=== PATIENT | female | born 1985 | race Caucasian/White ===

== ENCOUNTER 2018-05-18 10:10 | Inpatient (IN) | payer OTHER ==
[2018-05-18 10:49] VITALS: BMI 41.3
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
[2018-05-18] MEDS ORDERED: MAGNESIUM CITRATE 300 ML BOTTLE PO PRN (12:01)
[2018-05-18] MEDS ORDERED: IBUPROFEN 400 MG TABLET (FP) PO PRN (12:01)
[2018-05-18] MEDS ORDERED: diazePAM 5 MG TABLET PO PRN (12:01)
[2018-05-18] MEDS ORDERED: ACETAMINOPHEN 325 MG TABLET (FP) PO PRN (12:01)
[2018-05-18] MEDS ORDERED: MAGNESIUM HYDROX 2400MG/30ML ORAL SUSPENSION 30 ML CUP PO PRN (12:01)
[2018-05-18] MEDS ORDERED: MAG HYDROX/AL HYDROX/SIMETH 30 ML UNIT-DOSE CUP PO PRN (12:01)
[2018-05-18] MEDS ORDERED: ALBUTEROL SO4 8 GM HFA INHALER IH PRN (12:07)
[2018-05-18] MEDS ORDERED: ALBUTEROL SO4 0.083% IH SOL 2.5 MG/3 ML VIAL.NEB. NEB PRN (12:11)
[2018-05-18] MEDS ORDERED: diazePAM 5 MG TABLET PO ONE (12:45)
[2018-05-18] MEDS: diazePAM 5 MG TABLET PO SCH ×2 (14:28→22:23)
--- NOTE | 2018-05-18 15:41 | EKG ---
Test Reason : Blood Pressure : / mmHG Vent. Rate : 097 BPM Atrial Rate : 097 BPM P-R Int : 118 ms QRS Dur : 094 ms QT Int : 370 ms P-R-T Axes : 064 058 022 degrees QTc Int : 469 ms NORMAL SINUS RHYTHM NORMAL ECG NO PREVIOUS ECGS AVAILABLE Confirmed by MILES MICHEL MD ([id number]) on 05/18/2018 3:40:56 PM Referred By: Confirmed By:MILES MICHEL MD
[2018-05-18] MEDS: INSULIN SLIDING SCALE (NOVOLOG) 1 VIAL SQ SCH ×2 (17:28→22:19)
[2018-05-18] MEDS ORDERED: INSULIN (NOVOLOG) ASPART 100 UNITS/ML 10ML VIAL ONE ×2 (17:30→22:21)
[2018-05-18 17:55] LABS: URINE APPEARANCE SLCLOUDY; URINE BILIRUBIN NEGATIVE (<2.0 mg/dL); URINE COLOR YELLOW; URINE GLUCOSE (UA) 1+ (NEGATIVE); URINE KETONE NEGATIVE (NEGATIVE); URINE LEUK ESTERASE NEGATIVE (NEGATIVE); URINE NITRITE NEGATIVE (NEGATIVE); URINE PROTEIN NEGATIVE (NEGATIVE); URINE UROBILINOGEN NEGATIVE mg/dL (0.2-1.0)
[2018-05-18] MEDS: NICOTINE POLACRILEX 2 MG GUM BUC PRN (20:23)
[2018-05-18] MEDS ORDERED: MELATONIN 5 MG TABLETS PO PRN (22:00)
[2018-05-18] MEDS: THIAMINE HCL 100 MG TABLET (FP) PO SCH (22:20)
[2018-05-19] MEDS: diazePAM 5 MG TABLET PO SCH ×3 (05:43→23:02)
[2018-05-19] MEDS: NICOTINE POLACRILEX 2 MG GUM BUC PRN ×3 (06:22→18:25)
[2018-05-19] MEDS: INSULIN SLIDING SCALE (NOVOLOG) 1 VIAL SQ SCH ×4 (06:38→23:09)
[2018-05-19] MEDS ORDERED: diazePAM 5 MG TABLET PO SCH (10:00)
[2018-05-19] MEDS: PRENATAL VITAMINS W/ FOLIC ACID TABLET (FP) PO SCH (10:13)
[2018-05-19 11:05] LABS: HEMATOCRIT 42.4 % (32.4-45.2); HEMOGLOBIN 13.9 GM/dL (10.7-15.3); MCH 27.8 pg (25.7-33.7); MCHC 32.8 g/dl (32.0-36.0); MEAN CELL VOLUME 84.9 fl (80-96); MEAN PLT VOLUME 10.8 fl (7.5-11.1); RDW 13.6 % (11.6-15.6); WHITE BLOOD COUNT 16.9 K/mm3 (4.0-10.0)
[2018-05-19 11:18] LABS: CHLORIDE 102 mmol/L (98-107); POTASSIUM 4.2 mmol/L (3.5-5.1); SODIUM 139 mmol/L (136-145)
[2018-05-19 11:27] LABS: ALBUMIN 3.1 g/dl (3.4-5.0); ALK PHOS 67 U/L (45-117); ANION GAP 11 MMOL/L (8-16); BILIRUBIN,TOTAL 0.2 mg/dL (0.2-1.0); BLOOD UREA NITROGEN 18 mg/dL (7-18); CALCIUM 8.8 mg/dL (8.5-10.1); CO2 26 mmol/L (21-32); CREATININE 0.6 mg/dL (0.55-1.3); GLUCOSE,RANDOM 224 mg/dL (74-106); SGOT/AST 7 U/L (15-37); SGPT/ALT 18 U/L (13-61); TOT PROT 6.8 g/dl (6.4-8.2)
[2018-05-19] MEDS ORDERED: INSULIN (NOVOLOG) ASPART 100 UNITS/ML 10ML VIAL ONE ×2 (11:31→17:50)
--- NOTE | 2018-05-19 11:36 | PN ---
S CIWA - CIWA Score Nausea/Vomitin Muscle Tremors: 2 Anxiety: 3 Agitation: 2 Paroxysmal Sweats: 3 Orientation: 0-Oriented Tacttile Disturbances: 2-Mild Itch/Numbness/Burn Auditory Disturbances: 0-None Visual Disturbances: 0-None Headache: 1-Very Mild CIWA-Ar Total Score: 15 S Progress Note (SOAP) Subjective: INTERRUPTED SLEEP, SWEATS , RT FOOT PAIN Objective: 05/19/18 11:33 Vital Signs Temperature 97.7 F 05/19/18 09:41 Pulse Rate 84 05/19/18 09:41 Respiratory Rate 20 05/19/18 09:41 Blood Pressure 132/71 05/19/18 09:41 O2 Sat by Pulse Oximetry (%) Laboratory Tests 05/18/18 05/18/18 05/18/18 11:21 15:00 16:29 WBC RBC Hgb Hct MCV MCH MCHC RDW MPV Sodium Potassium Chloride Carbon Dioxide Anion Gap BUN Creatinine Creat Clearance w eGFR POC Glucometer 262 231 Random Glucose Calcium Total Bilirubin AST ALT Alkaline Phosphatase Total Protein Albumin Urine Color Yellow Urine Appearance Slcloudy Urine pH 5.0 Ur Specific [place] 1.024 Urine Protein Negative Urine Glucose (UA) 1+ H Urine Ketones Negative Urine Blood Negative Urine Nitrite Negative Urine Bilirubin Negative Urine Urobilinogen Negative Ur Leukocyte Esterase Negative 05/18/18 05/19/18 05/19/18 22:17 05:41 06:00 WBC 16.9 H RBC 5.00 Hgb 13.9 Hct 42.4 MCV 84.9 MCH 27.8 MCHC 32.8 RDW 13.6 MPV 10.8 Sodium Potassium Chloride Carbon Dioxide Anion Gap BUN Creatinine Creat Clearance w eGFR POC Glucometer 331 177 Random Glucose Calcium Total Bilirubin AST ALT Alkaline Phosphatase Total Protein Albumin Urine Color Urine Appearance Urine pH Ur Specific [place] Urine Protein Urine Glucose (UA) Urine Ketones Urine Blood Urine Nitrite Urine Bilirubin Urine Urobilinogen Ur Leukocyte Esterase 05/19/18 05/19/18 06:00 11:11 WBC RBC Hgb Hct MCV MCH MCHC RDW MPV Sodium 139 Potassium 4.2 Chloride 102 Carbon Dioxide 26 Anion Gap 11 BUN 18 Creatinine 0.6 Creat Clearance w eGFR > 60 POC Glucometer 245 Random Glucose 224 H Calcium 8.8 Total Bilirubin 0.2 AST 7 L ALT 18 Alkaline Phosphatase 67 Total Protein 6.8 Albumin 3.1 L Urine Color Urine Appearance Urine pH Ur Specific [place] Urine Protein Urine Glucose (UA) Urine Ketones Urine Blood Urine Nitrite Urine Bilirubin Urine Urobilinogen Ur Leukocyte Esterase OBESE F PT AOX3 SITTING UP EATTING IN BED PT USING CANE FOR AMBULATION + HIRSUTISM 05/19/18 11:37 Assessment: 05/19/18 11:39 WITHDRAWAL SX'S MS DM HTN Plan: CONT DETOX INCREASE FLUIDS METFORMIN 1000MG BID LISINOPRIL 20MG DAILY PREDNISONE 40MG /D INSULIN COVERAGE INDICATED
[2018-05-19 14:09] LABS: RPR REACTIVE 1:8 (NONREACTIVE)
--- NOTE | 2018-05-19 15:05 | PN ---
[facility] Progress Note Note: 33 y/o f pt with h/o syphilis treated 1 month with doxycycline 500mg bid x 14 day( 2nd to pcn allergy) while she was at alf. Pt doesn't know what titer was at that time . Vital Signs Temperature 97.7 F 05/19/18 14:37 Pulse Rate 90 05/19/18 14:37 Respiratory Rate 16 05/19/18 14:37 Blood Pressure 134/77 05/19/18 14:37 O2 Sat by Pulse Oximetry (%) Abnormal Lab Results 05/18/18 05/19/18 05/19/18 15:00 06:00 06:00 WBC 16.9 H Random Glucose 224 H AST 7 L Albumin 3.1 L Urine Glucose (UA) 1+ H RPR Titer 05/19/18 06:00 WBC Random Glucose AST Albumin Urine Glucose (UA) RPR Titer Reactive 1:8 H IMP- syphilis titer reactive 1:8 PLAN - doxycycline 100mg bid x 14 days f/up at EPI / PMD
[2018-05-19 15:12] LABS: TREPONEMA ANTIBODY REACTIVE (NONREACTIVE)
[2018-05-19] MEDS: metFORMIN HCL 500 MG TABLET (FP) PO SCH (18:21)
[2018-05-19] MEDS: DOXYCYCLINE HYCLATE 100 MG TABLET PO SCH (18:21)
[2018-05-19] MEDS: THIAMINE HCL 100 MG TABLET (FP) PO SCH (23:01)
[2018-05-20] MEDS: metFORMIN HCL 500 MG TABLET (FP) PO SCH ×2 (06:25→17:30)
[2018-05-20] MEDS: INSULIN SLIDING SCALE (NOVOLOG) 1 VIAL SQ SCH ×4 (06:25→22:45)
[2018-05-20] MEDS: LISINOPRIL 20 MG TABLET (FP) PO SCH (10:28)
[2018-05-20] MEDS: diazePAM 5 MG TABLET PO SCH ×2 (10:28→22:37)
[2018-05-20] MEDS: PRENATAL VITAMINS W/ FOLIC ACID TABLET (FP) PO SCH (10:28)
[2018-05-20] MEDS: HYDROCHLOROTHIAZIDE 25 MG TABLET (FP) PO SCH (10:28)
[2018-05-20] MEDS: DOXYCYCLINE HYCLATE 100 MG TABLET PO SCH ×2 (10:28→17:51)
[2018-05-20] MEDS: predniSONE 20 MG TABLET (UD) PO SCH (10:29)
[2018-05-20] MEDS: hydrOXYzine PAMOATE 25 MG CAPSULE (FP) PO PRN ×2 (10:30→22:38)
[2018-05-20] MEDS: NICOTINE POLACRILEX 2 MG GUM BUC PRN ×2 (10:31→17:56)
[2018-05-20 11:19] LABS: BASO % 0.4 % (0-2.0); EOS % 1.3 % (0-4.5); HEMATOCRIT 46.4 % (32.4-45.2); HEMOGLOBIN 15.1 GM/dL (10.7-15.3); LYMPH % 35.5 % (8-40); MCH 27.6 pg (25.7-33.7); MCHC 32.5 g/dl (32.0-36.0); MEAN PLT VOLUME 10.8 fl (7.5-11.1); MONO % 6.3 % (3.8-10.2); NEUT % 56.5 % (42.8-82.8); RBC 5.47 M/mm3 (3.60-5.2); RDW 13.4 % (11.6-15.6); WHITE BLOOD COUNT 19.1 K/mm3 (4.0-10.0)
[2018-05-20] MEDS ORDERED: INSULIN (NOVOLOG) ASPART 100 UNITS/ML 10ML VIAL ONE ×3 (11:48→22:45)
--- NOTE | 2018-05-20 12:12 | PN ---
[facility] CIWA - CIWA Score Nausea/Vomitin-Mild Nausea/No Vomiting Muscle Tremors: 1-None Visible, but Temperance Anxiety: 1-Mildly Anxious Agitation: 1-Slight > Activity Paroxysmal Sweats: 1-Minimal Palms Moist Orientation: 0-Oriented Tacttile Disturbances: 0-None Auditory Disturbances: 0-None Visual Disturbances: 0-None Headache: 0-None Present CIWA-Ar Total Score: 5 BHS Progress Note (SOAP) Subjective: pt without complaints, says feeling OK, pt stubbed toe a couple of days back O: Vital Signs - 24 hr 05/19/18 05/19/18 05/19/18 14:37 18:04 22:09 Temperature 97.7 F 97.9 F 97.3 F L Pulse Rate 90 87 99 H Respiratory 16 18 20 Rate Blood Pressure 134/77 128/80 134/71 05/20/18 05/20/18 05/20/18 00:30 03:30 07:30 Temperature 97.5 F L Pulse Rate 83 Respiratory 18 18 18 Rate Blood Pressure 121/84 05/20/18 08:44 Temperature 97.5 F L Pulse Rate 93 H Respiratory 16 Rate Blood Pressure 152/83 SBP mildly high Laboratory Tests 05/18/18 05/18/18 05/18/18 11:21 15:00 16:29 WBC RBC Hgb Hct MCV MCH MCHC RDW Plt Count MPV Absolute Neuts (auto) Neutrophils % Lymphocytes % Monocytes % Eosinophils % Basophils % Nucleated RBC % Platelet Comment Sodium Potassium Chloride Carbon Dioxide Anion Gap BUN Creatinine Creat Clearance w eGFR POC Glucometer 262 231 Random Glucose Calcium Total Bilirubin AST ALT Alkaline Phosphatase Total Protein Albumin Urine Color Yellow Urine Appearance Slcloudy Urine pH 5.0 Ur Specific [place] 1.024 Urine Protein Negative Urine Glucose (UA) 1+ H Urine Ketones Negative Urine Blood Negative Urine Nitrite Negative Urine Bilirubin Negative Urine Urobilinogen Negative Ur Leukocyte Esterase Negative RPR Titer T.pallidum Ab ([facility]) 05/18/18 05/19/18 05/19/18 22:17 05:41 06:00 WBC 16.9 H RBC 5.00 Hgb 13.9 Hct 42.4 MCV 84.9 MCH 27.8 MCHC 32.8 RDW 13.6 Plt Count TNP MPV 10.8 Absolute Neuts (auto) Neutrophils % Lymphocytes % Monocytes % Eosinophils % Basophils % Nucleated RBC % Platelet Comment Sodium Potassium Chloride Carbon Dioxide Anion Gap BUN Creatinine Creat Clearance w eGFR POC Glucometer 331 177 Random Glucose Calcium Total Bilirubin AST ALT Alkaline Phosphatase Total Protein Albumin Urine Color Urine Appearance Urine pH Ur Specific [place] Urine Protein Urine Glucose (UA) Urine Ketones Urine Blood Urine Nitrite Urine Bilirubin Urine Urobilinogen Ur Leukocyte Esterase RPR Titer T.pallidum Ab (A) 05/19/18 05/19/18 05/19/18 06:00 06:00 11:11 WBC RBC Hgb Hct MCV MCH MCHC RDW Plt Count MPV Absolute Neuts (auto) Neutrophils % Lymphocytes % Monocytes % Eosinophils % Basophils % Nucleated RBC % Platelet Comment Sodium 139 Potassium 4.2 Chloride 102 Carbon Dioxide 26 Anion Gap 11 BUN 18 Creatinine 0.6 Creat Clearance w eGFR > 60 POC Glucometer 245 Random Glucose 224 H Calcium 8.8 Total Bilirubin 0.2 AST 7 L ALT 18 Alkaline Phosphatase 67 Total Protein 6.8 Albumin 3.1 L Urine Color Urine Appearance Urine pH Ur Specific [place] Urine Protein Urine Glucose (UA) Urine Ketones Urine Blood Urine Nitrite Urine Bilirubin Urine Urobilinogen Ur Leukocyte Esterase RPR Titer Reactive 1:8 H T.pallidum Ab ([facility]) Reactive 05/19/18 05/20/18 05/20/18 16:32 06:23 07:50 WBC 19.1 H RBC 5.47 H Hgb 15.1 Hct 46.4 H MCV 85.0 MCH 27.6 MCHC 32.5 RDW 13.4 Plt Count MPV 10.8 Absolute Neuts (auto) 10.8 H Neutrophils % 56.5 Lymphocytes % 35.5 Monocytes % 6.3 Eosinophils % 1.3 Basophils % 0.4 Nucleated RBC % 0 Platelet Comment Sodium Potassium Chloride Carbon Dioxide Anion Gap BUN Creatinine Creat Clearance w eGFR POC Glucometer 316 176 Random Glucose Calcium Total Bilirubin AST ALT Alkaline Phosphatase Total Protein Albumin Urine Color Urine Appearance Urine pH Ur Specific [place] Urine Protein Urine Glucose (UA) Urine Ketones Urine Blood Urine Nitrite Urine Bilirubin Urine Urobilinogen Ur Leukocyte Esterase RPR Titer T.pallidum Ab (A) 05/20/18 11:22 WBC RBC Hgb Hct MCV MCH MCHC RDW Plt Count MPV Absolute Neuts (auto) Neutrophils % Lymphocytes % Monocytes % Eosinophils % Basophils % Nucleated RBC % Platelet Comment Sodium Potassium Chloride Carbon Dioxide Anion Gap BUN Creatinine Creat Clearance w eGFR POC Glucometer 233 Random Glucose Calcium Total Bilirubin AST ALT Alkaline Phosphatase Total Protein Albumin Urine Color Urine Appearance Urine pH Ur Specific [place] Urine Protein Urine Glucose (UA) Urine Ketones Urine Blood Urine Nitrite Urine Bilirubin Urine Urobilinogen Ur Leukocyte Esterase RPR Titer T.pallidum Ab (A) PE: toe shows no evidence of infection, no redness, no pain, not fluctuant increased WBC and increased glucose a/p: on etoh detox protocol: doing well. increased WBC no evidence of infection at the present moment: d/w pt- to make us aware if toe gets worse or any other Sx elsewhere
[2018-05-20 13:30] LABS: PLATELET ESTIMATE ADEQUATE
[2018-05-20] MEDS: THIAMINE HCL 100 MG TABLET (FP) PO SCH (22:37)
[2018-05-21] MEDS ORDERED: INSULIN (NOVOLOG) ASPART 100 UNITS/ML 10ML VIAL ONE ×3 (06:58→16:41)
[2018-05-21] MEDS: metFORMIN HCL 500 MG TABLET (FP) PO SCH ×2 (06:59→16:45)
[2018-05-21] MEDS: INSULIN SLIDING SCALE (NOVOLOG) 1 VIAL SQ SCH ×4 (07:01→22:56)
[2018-05-21] MEDS: NICOTINE POLACRILEX 2 MG GUM BUC PRN ×3 (07:49→15:38)
[2018-05-21] MEDS: DOXYCYCLINE HYCLATE 100 MG TABLET PO SCH (09:52)
[2018-05-21] MEDS: LISINOPRIL 20 MG TABLET (FP) PO SCH (09:53)
[2018-05-21] MEDS: PRENATAL VITAMINS W/ FOLIC ACID TABLET (FP) PO SCH (09:53)
[2018-05-21] MEDS: HYDROCHLOROTHIAZIDE 25 MG TABLET (FP) PO SCH (09:53)
[2018-05-21] MEDS: predniSONE 20 MG TABLET (UD) PO SCH (09:53)
[2018-05-21] MEDS ORDERED: diazePAM 5 MG TABLET PO SCH (10:00)
--- NOTE | 2018-05-21 11:12 | PN ---
[facility] Progress Note (SOAP) Subjective: feeling better less sweat no tremor no gi distress reported positive sypnilis months ago treated with doxycycline 100 mg bid x 14 days no positive syphilis symptoms noted unknown original trust level current 1:8 wbc 19/1 begin doxyclline 100 mg po bid x 28 days Objective: 05/21/18 11:22 Vital Signs Temperature 97.7 F 05/21/18 09:20 Pulse Rate 108 H 05/21/18 09:20 Respiratory Rate 16 05/21/18 09:20 Blood Pressure 141/88 05/21/18 09:20 O2 Sat by Pulse Oximetry (%) Laboratory Last Values WBC 19.1 K/mm3 (4.0-10.0) H 05/20/18 07:50 RBC 5.47 M/mm3 (3.60-5.2) H 05/20/18 07:50 Hgb 15.1 GM/dL (10.7-15.3) 05/20/18 07:50 Hct 46.4 % (32.4-45.2) H 05/20/18 07:50 MCV 85.0 fl (80-96) 05/20/18 07:50 MCH 27.6 pg (25.7-33.7) 05/20/18 07:50 MCHC 32.5 g/dl (32.0-36.0) 05/20/18 07:50 RDW 13.4 % (11.6-15.6) 05/20/18 07:50 Plt Count No Result Required. 05/20/18 07:50 MPV 10.8 fl (7.5-11.1) 05/20/18 07:50 Absolute Neuts (auto) 10.8 K/mm3 (1.5-8.0) H 05/20/18 07:50 Neutrophils % 56.5 % (42.8-82.8) 05/20/18 07:50 Lymphocytes % 35.5 % (8-40) 05/20/18 07:50 Monocytes % 6.3 % (3.8-10.2) 05/20/18 07:50 Eosinophils % 1.3 % (0-4.5) 05/20/18 07:50 Basophils % 0.4 % (0-2.0) 05/20/18 07:50 Nucleated RBC % 0 % (0-0) 05/20/18 07:50 Platelet Estimate Adequate 05/20/18 07:50 Platelet Comment Mod plt clumping 05/20/18 07:50 Sodium 139 mmol/L (136-145) 05/19/18 06:00 Potassium 4.2 mmol/L (3.5-5.1) 05/19/18 06:00 Chloride 102 mmol/L (98-107) 05/19/18 06:00 Carbon Dioxide 26 mmol/L (21-32) 05/19/18 06:00 Anion Gap 11 MMOL/L (8-16) 05/19/18 06:00 BUN 18 mg/dL (7-18) 05/19/18 06:00 Creatinine 0.6 mg/dL (0.55-1.3) 05/19/18 06:00 Creat Clearance w eGFR > 60 (>60) 05/19/18 06:00 POC Glucometer 207 UNITS (80-120) 05/21/18 06:44 Random Glucose 224 mg/dL (74-106) H 05/19/18 06:00 Calcium 8.8 mg/dL (8.5-10.1) 05/19/18 06:00 Total Bilirubin 0.2 mg/dL (0.2-1.0) 05/19/18 06:00 AST 7 U/L (15-37) L 05/19/18 06:00 ALT 18 U/L (13-61) 05/19/18 06:00 Alkaline Phosphatase 67 U/L (45-117) 05/19/18 06:00 Total Protein 6.8 g/dl (6.4-8.2) 05/19/18 06:00 Albumin 3.1 g/dl (3.4-5.0) L 05/19/18 06:00 Urine Color Yellow 05/18/18 15:00 Urine Appearance Slcloudy 05/18/18 15:00 Urine pH 5.0 (5.0-8.0) 05/18/18 15:00 Ur Specific [place] 1.024 (1.001-1.035) 05/18/18 15:00 Urine Protein Negative (NEGATIVE) 05/18/18 15:00 Urine Glucose (UA) 1+ (NEGATIVE) H 05/18/18 15:00 Urine Ketones Negative (NEGATIVE) 05/18/18 15:00 Urine Blood Negative (NEGATIVE) 05/18/18 15:00 Urine Nitrite Negative (NEGATIVE) 05/18/18 15:00 Urine Bilirubin Negative (<2.0 mg/dL) 05/18/18 15:00 Urine Urobilinogen Negative mg/dL (0.2-1.0) 05/18/18 15:00 Ur Leukocyte Esterase Negative (NEGATIVE) 05/18/18 15:00 RPR Titer Reactive 1:8 (NONREACTIVE) H 05/19/18 06:00 T.pallidum Ab ([facility]) Reactive (NONREACTIVE) 05/19/18 06:00 lab noted syphilis begin doxcycline repeat cbc Assessment: 05/21/18 11:23 withdrawal sx syphilis Plan: continue detox begin doxcycline repeat cbc
[2018-05-21] MEDS ORDERED: DOXYCYCLINE HYCLATE 100 MG CAPSULE PO SCH (18:00)
[2018-05-21] MEDS: THIAMINE HCL 100 MG TABLET (FP) PO SCH (22:56)
[2018-05-22 06:11] VITALS: BP 120/72; PULSE 87; TEMP 97.5
[2018-05-22] MEDS: metFORMIN HCL 500 MG TABLET (FP) PO SCH (06:38)
[2018-05-22] MEDS: INSULIN SLIDING SCALE (NOVOLOG) 1 VIAL SQ SCH (07:16)
--- NOTE | 2018-05-22 08:46 | DS ---
[facility] Detox Discharge Summary Admission Date: 05/18/18 Discharge Date: 05/22/18 - History Present History: Alcohol Dependence Additional Comments: 33 years old female admitted on 05/18/18 for alcohol withdrawal sx completed detox regimen tolerated well denies alcohol withdrawal sx alert oriented x 3 no acute distress aftercare [facility] Pertinent Past History: patient agrees to discuss her toe with her primary care provider also agrees to return to patient [facility] - Physical Exam Results Vital Signs: Vital Signs Temperature 97.5 F L 05/22/18 06:00 Pulse Rate 87 05/22/18 06:00 Respiratory Rate 18 05/22/18 06:00 Blood Pressure 120/72 05/22/18 06:00 O2 Sat by Pulse Oximetry (%) Pertinent Admission Physical Exam Findings: alcohol withdrawal sx Vital Signs Temperature 97.5 F L 05/22/18 09:15 Pulse Rate 87 05/22/18 09:15 Respiratory Rate 18 05/22/18 09:15 Blood Pressure 120/72 05/22/18 09:15 O2 Sat by Pulse Oximetry (%) Laboratory Last Values WBC 24.1 K/mm3 (4.0-10.0) H 05/22/18 08:00 RBC 5.37 M/mm3 (3.60-5.2) H 05/22/18 08:00 Hgb 14.9 GM/dL (10.7-15.3) 05/22/18 08:00 Hct 45.4 % (32.4-45.2) H 05/22/18 08:00 MCV 84.5 fl (80-96) 05/22/18 08:00 MCH 27.7 pg (25.7-33.7) 05/22/18 08:00 MCHC 32.8 g/dl (32.0-36.0) 05/22/18 08:00 RDW 13.5 % (11.6-15.6) 05/22/18 08:00 Plt Count TNP 05/22/18 08:00 MPV 10.9 fl (7.5-11.1) 05/22/18 08:00 Absolute Neuts (auto) 10.8 K/mm3 (1.5-8.0) H 05/20/18 07:50 Neutrophils % 56.5 % (42.8-82.8) 05/20/18 07:50 Lymphocytes % 35.5 % (8-40) 05/20/18 07:50 Monocytes % 6.3 % (3.8-10.2) 05/20/18 07:50 Eosinophils % 1.3 % (0-4.5) 05/20/18 07:50 Basophils % 0.4 % (0-2.0) 05/20/18 07:50 Nucleated RBC % 0 % (0-0) 05/20/18 07:50 Platelet Estimate Adequate 05/20/18 07:50 Platelet Comment 05/22/18 08:00 Sodium 139 mmol/L (136-145) 05/19/18 06:00 Potassium 4.2 mmol/L (3.5-5.1) 05/19/18 06:00 Chloride 102 mmol/L (98-107) 05/19/18 06:00 Carbon Dioxide 26 mmol/L (21-32) 05/19/18 06:00 Anion Gap 11 MMOL/L (8-16) 05/19/18 06:00 BUN 18 mg/dL (7-18) 05/19/18 06:00 Creatinine 0.6 mg/dL (0.55-1.3) 05/19/18 06:00 Creat Clearance w eGFR > 60 (>60) 05/19/18 06:00 POC Glucometer 184 UNITS (80-120) 05/22/18 06:37 Random Glucose 224 mg/dL (74-106) H 05/19/18 06:00 Calcium 8.8 mg/dL (8.5-10.1) 05/19/18 06:00 Total Bilirubin 0.2 mg/dL (0.2-1.0) 05/19/18 06:00 AST 7 U/L (15-37) L 05/19/18 06:00 ALT 18 U/L (13-61) 05/19/18 06:00 Alkaline Phosphatase 67 U/L (45-117) 05/19/18 06:00 Total Protein 6.8 g/dl (6.4-8.2) 05/19/18 06:00 Albumin 3.1 g/dl (3.4-5.0) L 05/19/18 06:00 Urine Color Yellow 05/18/18 15:00 Urine Appearance Slcloudy 05/18/18 15:00 Urine pH 5.0 (5.0-8.0) 05/18/18 15:00 Ur Specific [place] 1.024 (1.001-1.035) 05/18/18 15:00 Urine Protein Negative (NEGATIVE) 05/18/18 15:00 Urine Glucose (UA) 1+ (NEGATIVE) H 05/18/18 15:00 Urine Ketones Negative (NEGATIVE) 05/18/18 15:00 Urine Blood Negative (NEGATIVE) 05/18/18 15:00 Urine Nitrite Negative (NEGATIVE) 05/18/18 15:00 Urine Bilirubin Negative (<2.0 mg/dL) 05/18/18 15:00 Urine Urobilinogen Negative mg/dL (0.2-1.0) 05/18/18 15:00 Ur Leukocyte Esterase Negative (NEGATIVE) 05/18/18 15:00 RPR Titer Reactive 1:8 (NONREACTIVE) H 05/19/18 06:00 T.pallidum Ab ([facility]) Reactive (NONREACTIVE) 05/19/18 06:00 lab noted patient wants to return to her primary care provider for her diabetes and asthma patient had doxcycline 100 mg po bid x 14 days a month ago continue doxycycline 100 mg po bid x 28 days - Treatment Hospital Course: Detox Protocol Followed, Detoxed Safely, Responded well, Discharged Condition Good, Rehab Referral Accepted Patient has Accepted a Rehab Referral to: [facility] - Medication Discharge Medications: Ambulatory Orders Prednisone [Deltasone] 40 mg PO DAILY 05/18/18 Albuterol Sulfate Inhaler - [Ventolin HFA Inhaler -] 2 inh PO Q4H PRN #1 inhaler 05/21/18 Hydrochlorothiazide [Hctz -] 25 mg PO DAILY #30 tablet 05/21/18 Insulin Glargine,Hum.rec.anlog [Basaglar Kwikpen U-100] 15 unit SQ HS #1 insuln.pen 05/21/18 Lisinopril [Prinivil] 20 mg PO DAILY #30 tablet 05/21/18 Metformin HCl [Glucophage] 1,000 mg PO BID #60 tablet 05/21/18 Doxycycline Hyclate [Vibramycin -] 100 mg PO BID@1000,1800 #60 capsule 05/22/18 - Diagnosis (1) Diabetes mellitus type II, controlled Status: Chronic Qualifiers: Diabetes mellitus long line teamster insulin use: without long line teamster use Diabetes mellitus complication status: with unspecified complications Qualified Code(s) : E11.8 - Type 2 diabetes mellitus with unspecified complications (2) Hypertension Status: Chronic Qualifiers: Hypertension type: essential hypertension Qualified Code(s): I10 - Essential (primary) hypertension (3) Alcohol withdrawal Status: Acute Qualifiers: Complication of substance-induced condition: uncomplicated Qualified Code(s ): F10.230 - Alcohol dependence with withdrawal, uncomplicated (4) Syphilis Status: Chronic (5) Toe injury Status: Acute Qualifiers: Encounter type: sequela Laterality: unspecified laterality Qualified Code (s): S99.929S - Unspecified injury of unspecified foot, sequela - AMA Did Patient Leave Against Medical Advice: No
[2018-05-22 10:32] LABS: HEMATOCRIT 45.4 % (32.4-45.2); HEMOGLOBIN 14.9 GM/dL (10.7-15.3); MCH 27.7 pg (25.7-33.7); MCHC 32.8 g/dl (32.0-36.0); MEAN CELL VOLUME 84.5 fl (80-96); MEAN PLT VOLUME 10.9 fl (7.5-11.1); RBC 5.37 M/mm3 (3.60-5.2); RDW 13.5 % (11.6-15.6); WHITE BLOOD COUNT 24.1 K/mm3 (4.0-10.0)
== END 2018-05-22 11:38 | disposition home or self-care (01) | DRG 774 ==
LOC: YASAS 10:10 → Y6N 12:26
PROC: HZ2ZZZZ Detoxification Services for Substance Abuse Treatment (ICD-10-PCS; principal; 2018-05-18)
DX: F10.230 Alcohol dependence with withdrawal, uncomplicated (principal); F14.20 Cocaine dependence, uncomplicated; F25.9 Schizoaffective disorder, unspecified; I10 Essential (primary) hypertension; J45.909 Unspecified asthma, uncomplicated; E11.8 Type 2 diabetes mellitus with unspecified complications; Z79.4 Long term (current) use of insulin; Z79.84 Long term (current) use of oral hypoglycemic drugs; A53.9 Syphilis, unspecified; L68.0 Hirsutism; R26.89 Other abnormalities of gait and mobility; Z99.89 Dependence on other enabling machines and devices; S99.929A Unspecified injury of unspecified foot, initial encounter; X58.XXXA Exposure to other specified factors, initial encounter; Y93.9 Activity, unspecified; Y92.9 Unspecified place or not applicable; Y99.9 Unspecified external cause status
CPT/HCPCS: 36415; 80053; 81003; 82962; 85025; 85027; 86593; 86780; 93005; 93010

== ENCOUNTER 2018-11-12 10:21 | Inpatient (IN) | payer OTHER ==
[2018-11-12 11:57] VITALS: BMI 42.9
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
[2018-11-12] MEDS ORDERED: ALBUTEROL SO4 8 GM HFA INHALER IH PRN (14:25)
[2018-11-12] MEDS ORDERED: MAGNESIUM HYDROX 2400MG/30ML ORAL SUSPENSION 30 ML CUP PO PRN (14:28)
[2018-11-12] MEDS ORDERED: NICOTINE POLACRILEX 2 MG GUM BUC PRN (14:28)
[2018-11-12] MEDS ORDERED: hydrOXYzine PAMOATE 25 MG CAPSULE (FP) PO PRN (14:28)
[2018-11-12] MEDS ORDERED: chlordiazePOXIDE HCL 25 MG CAPSULE PO PRN (14:28)
[2018-11-12] MEDS ORDERED: MAG HYDROX/AL HYDROX/SIMETH 30 ML UNIT-DOSE CUP PO PRN (14:28)
[2018-11-12] MEDS ORDERED: MENTHOL/PHENOL 1 EACH UD MM PRN (14:28)
[2018-11-12] MEDS ORDERED: guaiFENesin 200 MG/10 ML 10 ML UNIT-DOSE CUPS PO PRN (14:28)
[2018-11-12] MEDS ORDERED: MAGNESIUM CITRATE 300 ML BOTTLE PO PRN (14:28)
[2018-11-12] MEDS ORDERED: ACETAMINOPHEN 325 MG TABLET (FP) PO PRN ×2 (14:28)
[2018-11-12] MEDS ORDERED: BISMUTH SUBSALICYLATE 524 MG/30 ML UD PO PRN (14:28)
[2018-11-12] MEDS ORDERED: IBUPROFEN 400 MG TABLET (FP) PO PRN (14:28)
[2018-11-12] MEDS ORDERED: MELATONIN 5 MG TABLETS PO PRN (14:28)
[2018-11-12] MEDS ORDERED: INSULIN (NOVOLOG) ASPART 100 UNITS/ML 10ML VIAL SQ ONE (17:14)
[2018-11-12] MEDS: chlordiazePOXIDE HCL 25 MG CAPSULE PO SCH ×2 (17:57→22:35)
[2018-11-12] MEDS: metFORMIN HCL 500 MG TABLET (FP) PO SCH (17:58)
[2018-11-12] MEDS ORDERED: metFORMIN HCL 500 MG TABLET (FP) PO SCH (22:00)
[2018-11-12] MEDS ORDERED: INSULIN (NOVOLOG) ASPART 100 UNITS/ML 10ML VIAL ONE (22:28)
[2018-11-12] MEDS: INSULIN (LEVEMIR) 100 UNITS/ML UNITS SQ SCH (22:33)
[2018-11-12] MEDS: INSULIN SLIDING SCALE (NOVOLOG) 1 VIAL SQ SCH (22:34)
[2018-11-12] MEDS: THIAMINE HCL 100 MG TABLET (FP) PO SCH (22:35)
[2018-11-13] MEDS: chlordiazePOXIDE HCL 25 MG CAPSULE PO SCH ×4 (06:10→23:20)
[2018-11-13] MEDS: metFORMIN HCL 500 MG TABLET (FP) PO SCH ×2 (06:16→16:48)
[2018-11-13] MEDS ORDERED: INSULIN (NOVOLOG) ASPART 100 UNITS/ML 10ML VIAL ONE ×3 (07:49→16:42)
[2018-11-13] MEDS: INSULIN SLIDING SCALE (NOVOLOG) 1 VIAL SQ SCH ×4 (07:55→23:21)
[2018-11-13 10:15] LABS: HEMATOCRIT 43.9 % (32.4-45.2); HEMOGLOBIN 15.1 GM/dL (10.7-15.3); MCH 29.7 pg (25.7-33.7); MCHC 34.3 g/dl (32.0-36.0); MEAN CELL VOLUME 86.6 fl (80-96); MEAN PLT VOLUME 11.3 fl (7.5-11.1); RBC 5.07 M/mm3 (3.60-5.2); RDW 13.4 % (11.6-15.6); WHITE BLOOD COUNT 11.6 K/mm3 (4.0-10.0)
[2018-11-13] MEDS: LISINOPRIL 20 MG TABLET (FP) PO SCH (10:22)
[2018-11-13] MEDS: METHOCARBAMOL 500 MG TABLET PO PRN (10:22)
[2018-11-13] MEDS: PRENATAL VITAMINS W/ FOLIC ACID TABLET (FP) PO SCH (10:22)
[2018-11-13] MEDS: HYDROCHLOROTHIAZIDE 25 MG TABLET (FP) PO SCH (10:22)
[2018-11-13] MEDS: NICOTINE 14 MG/24 HOURS TOPICAL PATCH TD SCH (10:22)
[2018-11-13 10:49] LABS: ALK PHOS 94 U/L (45-117); ANION GAP 12 MMOL/L (8-16); BILIRUBIN,TOTAL 0.5 mg/dL (0.2-1); BLOOD UREA NITROGEN 9 mg/dL (7-18); CHLORIDE 105 mmol/L (98-107); CO2 23 mmol/L (21-32); CREATININE 0.8 mg/dL (0.55-1.3); SGOT/AST 9 U/L (15-37); SGPT/ALT 15 U/L (13-61); SODIUM 140 mmol/L (136-145)
--- NOTE | 2018-11-13 11:07 | PN ---
S CIWA - CIWA Score Nausea/Vomitin-No Nausea/No Vomiting Muscle Tremors: 4-Moderate,w/Arms Extend Anxiety: 4-Mod. Anxious/Guarded Agitation: 4-Moderately Restless Paroxysmal Sweats: 3 Orientation: 0-Oriented Tacttile Disturbances: 0-None Auditory Disturbances: 0-None Visual Disturbances: 0-None Headache: 0-None Present CIWA-Ar Total Score: 15 [facility] Progress Note (SOAP) Subjective: sweats shakes interrupted sleep body aches Objective: 11/13/18 11:06 Vital Signs Temperature 98.5 F 11/13/18 09:43 Pulse Rate 100 H 11/13/18 09:43 Respiratory Rate 16 11/13/18 09:43 Blood Pressure 113/57 L 11/13/18 09:43 O2 Sat by Pulse Oximetry (%) Laboratory Tests 11/12/18 11/12/18 11/12/18 14:50 16:40 22:23 WBC RBC Hgb Hct MCV MCH MCHC RDW Sodium Potassium Chloride Carbon Dioxide Anion Gap BUN Creatinine Creat Clearance w eGFR POC Glucometer 357 355 359 Calcium Total Bilirubin AST ALT Alkaline Phosphatase Total Protein Albumin 11/13/18 11/13/18 11/13/18 06:12 08:00 08:00 WBC 11.6 H RBC 5.07 Hgb 15.1 Hct 43.9 MCV 86.6 MCH 29.7 MCHC 34.3 RDW 13.4 Sodium 140 Potassium 4.0 Chloride 105 Carbon Dioxide 23 Anion Gap 12 BUN 9 Creatinine 0.8 Creat Clearance w eGFR > 60 POC Glucometer 261 Calcium 9.0 Total Bilirubin 0.5 AST 9 L ALT 15 Alkaline Phosphatase 94 Total Protein 7.0 Albumin 3.0 L aaox3 ambulating no acute distress Assessment: 11/13/18 11:06 withdrawal sx Plan: continue detox increase fluids pending labs
[2018-11-13 11:25] LABS: GLUCOSE,RANDOM 331 mg/dL (74-106)
[2018-11-13 11:43] LABS: URINE APPEARANCE CLOUDY; URINE BILIRUBIN NEGATIVE (<2.0 mg/dL); URINE COLOR YELLOW; URINE GLUCOSE (UA) 3+ (NEGATIVE); URINE KETONE NEGATIVE (NEGATIVE); URINE LEUK ESTERASE NEGATIVE (NEGATIVE); URINE NITRITE NEGATIVE (NEGATIVE); URINE PROTEIN NEGATIVE (NEGATIVE); URINE UROBILINOGEN NEGATIVE mg/dL (0.2-1.0)
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
[2018-11-13] MEDS: INSULIN (LEVEMIR) 100 UNITS/ML UNITS SQ SCH (23:20)
[2018-11-13] MEDS: THIAMINE HCL 100 MG TABLET (FP) PO SCH (23:21)
[2018-11-14] MEDS: chlordiazePOXIDE HCL 25 MG CAPSULE PO SCH ×2 (05:57→11:03)
[2018-11-14] MEDS: metFORMIN HCL 500 MG TABLET (FP) PO SCH ×2 (07:04→17:00)
[2018-11-14] MEDS ORDERED: INSULIN (NOVOLOG) ASPART 100 UNITS/ML 10ML VIAL ONE ×3 (07:57→16:56)
[2018-11-14] MEDS: INSULIN SLIDING SCALE (NOVOLOG) 1 VIAL SQ SCH ×4 (08:01→23:04)
[2018-11-14] MEDS: METHOCARBAMOL 500 MG TABLET PO PRN (11:02)
[2018-11-14] MEDS: HYDROCHLOROTHIAZIDE 25 MG TABLET (FP) PO SCH (11:02)
[2018-11-14] MEDS: PRENATAL VITAMINS W/ FOLIC ACID TABLET (FP) PO SCH (11:02)
[2018-11-14] MEDS: LISINOPRIL 20 MG TABLET (FP) PO SCH (11:02)
[2018-11-14] MEDS: NICOTINE 14 MG/24 HOURS TOPICAL PATCH TD SCH (11:05)
--- NOTE | 2018-11-14 12:19 | PN ---
[facility] CIWA - CIWA Score Nausea/Vomitin-No Nausea/No Vomiting Muscle Tremors: 3 Anxiety: 3 Agitation: 3 Paroxysmal Sweats: 3 Orientation: 0-Oriented Tacttile Disturbances: 0-None Auditory Disturbances: 0-None Visual Disturbances: 0-None Headache: 0-None Present CIWA-Ar Total Score: 12 S Progress Note (SOAP) Subjective: irritable agitation sweats anxiety body aches Objective: 11/14/18 12:18 Vital Signs Temperature 98.1 F 11/14/18 09:13 Pulse Rate 101 H 11/14/18 09:13 Respiratory Rate 18 11/14/18 09:13 Blood Pressure 107/61 11/14/18 09:13 O2 Sat by Pulse Oximetry (%) Laboratory Tests 11/12/18 11/12/18 11/12/18 14:50 16:40 22:23 WBC RBC Hgb Hct MCV MCH MCHC RDW Plt Count MPV Platelet Comment Sodium Potassium Chloride Carbon Dioxide Anion Gap BUN Creatinine Creat Clearance w eGFR POC Glucometer 357 355 359 Random Glucose Calcium Total Bilirubin AST ALT Alkaline Phosphatase Total Protein Albumin Urine Color Urine Appearance Urine pH Ur Specific [place] Urine Protein Urine Glucose (UA) Urine Ketones Urine Blood Urine Nitrite Urine Bilirubin Urine Urobilinogen Ur Leukocyte Esterase Hep C Ab Diagnostic HIV 1&2 Antibody Screen HIV P24 Antigen 11/13/18 11/13/18 11/13/18 06:12 08:00 08:00 WBC RBC Hgb Hct MCV MCH MCHC RDW Plt Count MPV Platelet Comment Sodium Potassium Chloride Carbon Dioxide Anion Gap BUN Creatinine Creat Clearance w eGFR POC Glucometer 261 Random Glucose Calcium Total Bilirubin AST ALT Alkaline Phosphatase Total Protein Albumin Urine Color Urine Appearance Urine pH Ur Specific [place] Urine Protein Urine Glucose (UA) Urine Ketones Urine Blood Urine Nitrite Urine Bilirubin Urine Urobilinogen Ur Leukocyte Esterase Hep C Ab Diagnostic 0.1 HIV 1&2 Antibody Screen Negative HIV P24 Antigen Negative 11/13/18 11/13/18 11/13/18 08:00 08:00 08:00 WBC 11.6 H RBC 5.07 Hgb 15.1 Hct 43.9 MCV 86.6 MCH 29.7 MCHC 34.3 RDW 13.4 Plt Count No Result Required. MPV 11.3 H Platelet Comment Present Sodium 140 Potassium 4.0 Chloride 105 Carbon Dioxide 23 Anion Gap 12 BUN 9 Creatinine 0.8 Creat Clearance w eGFR > 60 POC Glucometer Random Glucose 331 H* Calcium 9.0 Total Bilirubin 0.5 AST 9 L ALT 15 Alkaline Phosphatase 94 Total Protein 7.0 Albumin 3.0 L Urine Color Yellow Urine Appearance Cloudy Urine pH 5.0 Ur Specific [place] 1.029 Urine Protein Negative Urine Glucose (UA) 3+ H D Urine Ketones Negative Urine Blood Negative Urine Nitrite Negative Urine Bilirubin Negative Urine Urobilinogen Negative Ur Leukocyte Esterase Negative Hep C Ab Diagnostic HIV 1&2 Antibody Screen HIV P24 Antigen 11/13/18 11/13/18 11/14/18 11:07 16:38 05:56 WBC RBC Hgb Hct MCV MCH MCHC RDW Plt Count MPV Platelet Comment Sodium Potassium Chloride Carbon Dioxide Anion Gap BUN Creatinine Creat Clearance w eGFR POC Glucometer 382 481 268 Random Glucose Calcium Total Bilirubin AST ALT Alkaline Phosphatase Total Protein Albumin Urine Color Urine Appearance Urine pH Ur Specific [place] Urine Protein Urine Glucose (UA) Urine Ketones Urine Blood Urine Nitrite Urine Bilirubin Urine Urobilinogen Ur Leukocyte Esterase Hep C Ab Diagnostic HIV 1&2 Antibody Screen HIV P24 Antigen 11/14/18 12:00 WBC RBC Hgb Hct MCV MCH MCHC RDW Plt Count MPV Platelet Comment Sodium Potassium Chloride Carbon Dioxide Anion Gap BUN Creatinine Creat Clearance w eGFR POC Glucometer 477 Random Glucose Calcium Total Bilirubin AST ALT Alkaline Phosphatase Total Protein Albumin Urine Color Urine Appearance Urine pH Ur Specific [place] Urine Protein Urine Glucose (UA) Urine Ketones Urine Blood Urine Nitrite Urine Bilirubin Urine Urobilinogen Ur Leukocyte Esterase Hep C Ab Diagnostic HIV 1&2 Antibody Screen HIV P24 Antigen aaox3 ambulating no acute distress Assessment: 11/14/18 12:18 withdrawal sx Plan: continue detox increase water intake monitor glucose
[2018-11-14 15:51] LABS: RPR REACTIVE 1:4 (NONREACTIVE)
[2018-11-14 15:56] LABS: TREPONEMA ANTIBODY PREVIOUSLY REACTIVE (NONREACTIVE)
[2018-11-14] MEDS: chlordiazePOXIDE HCL 10 MG CAPSULE PO SCH ×2 (17:00→23:04)
[2018-11-14] MEDS ORDERED: chlordiazePOXIDE HCL 10 MG CAPSULE PO PRN (17:00)
[2018-11-14] MEDS: THIAMINE HCL 100 MG TABLET (FP) PO SCH (23:04)
[2018-11-14] MEDS: INSULIN (LEVEMIR) 100 UNITS/ML UNITS SQ SCH (23:04)
[2018-11-15] MEDS: metFORMIN HCL 500 MG TABLET (FP) PO SCH (06:36)
[2018-11-15] MEDS: chlordiazePOXIDE HCL 10 MG CAPSULE PO SCH ×2 (06:36→10:07)
[2018-11-15] MEDS ORDERED: INSULIN (NOVOLOG) ASPART 100 UNITS/ML 10ML VIAL ONE ×2 (06:46→10:50)
[2018-11-15] MEDS: INSULIN SLIDING SCALE (NOVOLOG) 1 VIAL SQ SCH ×2 (07:56→10:52)
--- NOTE | 2018-11-15 09:26 | DS ---
[facility] Detox Discharge Summary Admission Date: 11/12/18 Discharge Date: 11/15/18 - History Present History: Alcohol Dependence, Cocaine Dependence, Sedative Dependence - Physical Exam Results Vital Signs: Vital Signs Temperature 97.9 F 11/15/18 07:28 Pulse Rate 100 H 11/15/18 07:28 Respiratory Rate 20 11/15/18 07:28 Blood Pressure 137/64 11/15/18 07:28 O2 Sat by Pulse Oximetry (%) - Treatment Hospital Course: Detox Protocol Followed, Detoxed Safely, Responded well, Discharged Condition Good, Rehab Referral Accepted - Medication Discharge Medications: Ambulatory Orders Albuterol Sulfate Inhaler - [Ventolin HFA Inhaler -] 2 inh PO Q4H PRN #1 inhaler 05/21/18 Hydrochlorothiazide [Hctz -] 25 mg PO DAILY #30 tablet 05/21/18 Insulin Glargine,Hum.rec.anlog [Basaglar Kwikpen U-100] 15 unit SQ HS #1 insuln.pen 05/21/18 Lisinopril [Prinivil] 20 mg PO DAILY #30 tablet 05/21/18 Metformin HCl [Glucophage] 1,000 mg PO BID #60 tablet 05/21/18 - Diagnosis (1) Alcohol dependence with withdrawal Current Visit: Yes Status: Chronic Qualifiers: Complication of substance-induced condition: uncomplicated Qualified Code(s ): F10.230 - Alcohol dependence with withdrawal, uncomplicated (2) Sedative, hypnotic or anxiolytic dependence with withdrawal, unspecified Current Visit: Yes Status: Chronic (3) Asthma Current Visit: Yes Status: Chronic Qualifiers: Asthma severity: mild Asthma persistence: intermittent Asthma complication type: uncomplicated Qualified Code(s): J45.20 - Mild intermittent asthma, uncomplicated (4) Cocaine dependence Current Visit: Yes Status: Chronic Qualifiers: Substance use status: uncomplicated Qualified Code(s): F14.20 - Cocaine dependence, uncomplicated (5) Diabetes mellitus with hyperglycemia Current Visit: Yes Status: Chronic Qualifiers: Diabetes mellitus type: type 2 Diabetes mellitus correction insulin use: with termite control service representative use Qualified Code(s): E11.65 - Type 2 diabetes mellitus with hyperglycemia; Z79.4 - halfway (current) use of insulin (6) History of schizoaffective disorder Current Visit: Yes Status: Chronic (7) Hypertension Current Visit: Yes Status: Chronic Qualifiers: Hypertension type: essential hypertension Qualified Code(s): I10 - Essential (primary) hypertension (8) Multiple sclerosis Current Visit: Yes Status: Chronic (9) Neuropathy Current Visit: Yes Status: Chronic (10) Nicotine dependence Current Visit: Yes Status: Chronic Qualifiers: Nicotine product type: cigarettes Substance use status: uncomplicated Qualified Code(s): F17.210 - Nicotine dependence, cigarettes, uncomplicated (11) Non-compliance Current Visit: Yes Status: Chronic (12) Substance induced mood disorder Current Visit: Yes Status: Chronic (13) Diabetes mellitus type II, controlled Current Visit: Yes Status: Chronic Qualifiers: Diabetes mellitus termite control service representative insulin use: without termite control service representative use Diabetes mellitus complication status: with unspecified complications Qualified Code(s) : E11.8 - Type 2 diabetes mellitus with unspecified complications (14) Syphilis Current Visit: No Status: Chronic - AMA Did Patient Leave Against Medical Advice: No (referred to [facility] inpatient rehab)
[2018-11-15 09:45] VITALS: BP 135/82; PULSE 108; TEMP 98.2
[2018-11-15] MEDS: LISINOPRIL 20 MG TABLET (FP) PO SCH (10:06)
[2018-11-15] MEDS: HYDROCHLOROTHIAZIDE 25 MG TABLET (FP) PO SCH (10:06)
[2018-11-15] MEDS: PRENATAL VITAMINS W/ FOLIC ACID TABLET (FP) PO SCH (10:06)
[2018-11-15] MEDS: NICOTINE 14 MG/24 HOURS TOPICAL PATCH TD SCH (10:07)
[2018-11-15] MEDS ORDERED: chlordiazePOXIDE HCL 10 MG CAPSULE PO SCH (17:00)
== END 2018-11-15 11:40 | disposition home or self-care (01) | DRG 774 ==
LOC: YASAS 10:21 → Y6N 14:37
PROVIDERS: ADMIT Surgery; ATTEND Surgery
PROC: HZ2ZZZZ Detoxification Services for Substance Abuse Treatment (ICD-10-PCS; principal; 2018-11-12)
DX: F10.230 Alcohol dependence with withdrawal, uncomplicated (principal); F13.230 Sedative, hypnotic or anxiolytic dependence with withdrawal, uncomplicated; F14.20 Cocaine dependence, uncomplicated; F17.210 Nicotine dependence, cigarettes, uncomplicated; F25.9 Schizoaffective disorder, unspecified; F19.24 Other psychoactive substance dependence with psychoactive substance-induced mood disorder; I10 Essential (primary) hypertension; J45.20 Mild intermittent asthma, uncomplicated; E11.65 Type 2 diabetes mellitus with hyperglycemia; E78.00 Pure hypercholesterolemia, unspecified; G35 Multiple sclerosis; G62.9 Polyneuropathy, unspecified; E66.9 Obesity, unspecified; Z68.41 Body mass index [BMI] 40.0-44.9, adult; Z79.4 Long term (current) use of insulin; Z86.72 Personal history of thrombophlebitis; Z91.19 Patient's noncompliance with other medical treatment and regimen; Z88.0 Allergy status to penicillin; Z91.5 Personal history of self-harm
CPT/HCPCS: 36415; 71046-TC-FY; 80053; 81003; 82962; 85027; 86593; 86780; 86803; 87389